=== PATIENT | male | born 1995 | race Hispanic/Latino ===

== ENCOUNTER 2020-11-16 10:23 | Emergency (ER) | payer OTHER ==
[~2020-11-16] VITALS: Ht 167.6 cm; Wt 104.3 kg
[2020-11-16] MEDS ORDERED: TYLENOL # 31 EA PO (13:02)
== END 2020-11-16 13:36 | disposition home or self-care (01) ==
LOC: FSED 11:10
DX: M79.662 Pain in left lower leg (principal); S83.92XA Sprain of unspecified site of left knee, initial encounter; S80.12XA Contusion of left lower leg, initial encounter; W10.8XXA Fall (on) (from) other stairs and steps, initial encounter; Y93.01 Activity, walking, marching and hiking; Y92.008 Other place in unspecified non-institutional (private) residence as the place of occurrence of the external cause
CPT/HCPCS: 99283